=== PATIENT | female | born 1980 | race Caucasian/White ===

== ENCOUNTER → 2018-02-21 15:45 | Outpatient (CLI) | payer BC ==
[2012-11-08 10:42] VITALS: BMI 49.0
[~2018-02-21 15:45] MED LIST: FLEXERIL10 MG PO; KLONOPIN0.5 MG; MOTRIN800 MG PO; NORCO 10/325 TA1 TA1 PO; WELLBUTRIN XL150 M1
== END | disposition home or self-care (01) ==
LOC: D.MRI 15:45
DX: M25.561 Pain in right knee (principal)

== ENCOUNTER 2018-03-18 11:30 | Day surgery (SDC) | payer MEDICAID ==
[2018-03-15 09:42] LABS: HEMATOCRIT 37.1 % (36.0-48.0); HEMOGLOBIN 12.1 g/dL (12-16); MCH 28.7 pg (26.0-34.0); MCHC 32.6 g/dL (31.0-37.0); MCV 87.9 fL (80.0-100.0); MEAN PLATELET VOLUME 10.2 fL (7.4-10.4); RBC 4.22 10x6/uL (4.00-5.40); WBC 7.1 10x3/uL (4.8-10.8)
[~2018-03-18] VITALS: Ht 165.1 cm; Wt 145.1 kg
[~2018-03-18 11:30] MED LIST changes: +ATARAX 25 MG TA25 MG PO
[2018-03-18] MEDS ORDERED: IBUPROFEN200 MG PO (12:03)
[2018-03-18 12:07] VITALS: BP 134/74; Ht 165.1 cm; Wt 145.1 kg
[2018-03-18 14:14] LABS: HCG URINE NEGATIVE (NEGATIVE)
[2018-03-18] MEDS ORDERED: NORCO 10-325 TA1 TAB PO (15:59)
--- NOTE | 2018-03-22 14:28 | OP ---
PATIENT NAME: ANDREY ESTRADA MEDICAL RECORD: [id number] :76 LOCATION:D.OPS ADMISSION DATE: SURGEON: DREW FAYE MD DATE OF OPERATION: 03/18/2018 PREOPERATIVE DIAGNOSIS: Recurrent ACL tear of the right knee. POSTOPERATIVE DIAGNOSIS: Recurrent ACL tear of the right knee. PROCEDURES: 1. Revision ACL reconstruction. 2. Arthroscopic partial medial meniscectomy. Please note that the ACL was done arthroscopically aided as well. SURGEON: Drew Faye MD FIRST ASSISANT: Tom Uribe INTRAOPERATIVE COMPLICATIONS: None. SUMMARY OF PATHOLOGIC FINDINGS: The patient had full-thickness anterior cruciate ligament retear consistent with the preoperative diagnosis and MRI. The patient also had a complex tear of the posterior horn of the medial meniscus. OPERATIVE SUMMARY IN DETAIL: After obtaining the appropriate preoperative orthopedic surgery consent as well as anesthetic consultation, evaluation and clearance, the patient was brought to the operating room and placed on the operating table in supine position. After general laryngeal mask airway was administered, tourniquet was placed on the proximal aspect of the right lower extremity. Right lower extremity was then prepped and draped in routine sterile fashion. The leg was elevated and exsanguinated, tourniquet was inflated to 350 mmHg. Routine inferolateral portal was established, followed by superomedial portal and inferomedial portal. Diagnostic arthroscopy did show the patient to have a recurrent tear of the ACL graft. This was then taken down and the patient had a very tight notch with very minimal osteophytes on the lateral aspect of the medial femoral condyle. Formal notchplasty was thus performed after the anterior cruciate ligament graft was cleared out in its entirety. Having completed this, attention was turned to medial meniscus, where a tear was noted. This was debrided. The patient had a complex tear and a sagittal split with gross tearing of the meniscus. This was debrided back to stable meniscal elements. Having completed this, the Arthrex tibial tunnel guide was utilized. The tibial tunnel was then placed back into the insertion of the ACL. Portions of old ACL remnants were thus removed. Then, using the femoral tunnel placement guide, the spade-tip Beath pin was then placed in the appropriate position and out the lateral femoral cortex and out the skin as well. Low profile 11-mm reamer was then used to create the femoral tunnel again avoiding a previous femoral tunnel that had been placed through the medial portal more out the medial aspect of the medial femoral condyle. This tunnel was placed in a more traditional fashion. The pulling rope was a #2 FiberWire. This was placed through and through the tunnels using the spade-tip Beath pin and then the guide that had been previously prepared was then guided into the tunnel with the assistance of Tom Uribe. The ACL graft was well seated and tightened multiple times. The knee was ranged to many times to seat the graft. Serial and sequential tightening of the TightRope button was then followed by placement of OPERATIVE REPORT [id number] ANDREY ESTRADA a bicortical Arthrex screw and the tibia for distal stabilization. Having completed this, the knee was then ranged again. The Cielo test was negative. Following this, the wounds were irrigated and closed, done by Tom Uribe. Sterile dressings were applied. Tourniquet was deflated, and the patient was then placed in a hinged knee brace set at 0 with further range of motion to be increased later. The patient was awakened and taken to the recovery room in stable condition. All final needle and sponge counts were correct. TRANSINT:[id number] Voice Confirmation ID: [id number] DOCUMENT ID: [id number] YUNIER ALVARADO, DREW LOPEZ at 1428 CC: [id number] DICTATION DATE: 03/22/18 1138 [employer]: 03/22/18 1237 [facility] 03/18/18 [facility] [address] [place] [address]
== END 2018-03-18 18:00 | disposition home or self-care (01) ==
LOC: D.SDCHOLD 11:30 → D.OPS 11:30 → D.SDCHOLD 14:00 → EDSTATUS 17:15 → D.SDCHOLD 17:15 → D.OPS 18:00
PROVIDERS: Anesthesiology; Orthopaedic Surgery
DX: S83.511A Sprain of anterior cruciate ligament of right knee, initial encounter (principal); S83.231A Complex tear of medial meniscus, current injury, right knee, initial encounter; X58.XXXA Exposure to other specified factors, initial encounter; Z01.812 Encounter for preprocedural laboratory examination

== ENCOUNTER → 2018-04-23 12:26 | Outpatient (CLI) | payer BC, MEDICAID ==
[~2018-04-23] VITALS: Ht 165.1 cm; Wt 56.7 kg
[~2018-04-23 12:26] MED LIST changes: +IBUPROFEN200 MG PO; +NORCO 10-325 TA1 TAB PO
[2018-04-23 14:21] VITALS: Ht 165.1 cm; Wt 56.7 kg
== END | disposition home or self-care (01) ==
LOC: D.FANS 12:26
DX: E66.01 Morbid (severe) obesity due to excess calories (principal)

== ENCOUNTER → 2018-07-30 09:21 | Outpatient (CLI) | payer BC ==
[2018-04-23 14:21] VITALS: BMI 20.8
== END | disposition home or self-care (01) ==
LOC: D.OPS 06-25 10:30
PROVIDERS: ATTEND Surgery
DX: E66.01 Morbid (severe) obesity due to excess calories (principal)

== ENCOUNTER 2018-07-31 08:50 | Outpatient (CLI) | payer BC, MEDICAID ==
[~2018-07-31] VITALS: Ht 165.1 cm; Wt 147.0 kg
[2018-07-31 09:12] VITALS: BP 155/99; Ht 165.1 cm; Wt 147.0 kg
== END 2018-07-31 10:33 | disposition home or self-care (01) ==
LOC: D.OPS 08:50
PROVIDERS: ATTEND Surgery
DX: E66.01 Morbid (severe) obesity due to excess calories (principal)

== ENCOUNTER → 2018-08-21 06:06 | Day surgery (SDC) | payer BC, MEDICAID ==
[~2018-08-21] VITALS: Ht 165.1 cm; Wt 144.1 kg
[2018-08-21 06:23] LABS: HEMATOCRIT 38.4 % (36.0-48.0); HEMOGLOBIN 12.6 g/dL (12-16); MCH 28.4 pg (26.0-34.0); MCHC 32.8 g/dL (31.0-37.0); MCV 86.7 fL (80.0-100.0); MEAN PLATELET VOLUME 9.8 fL (7.4-10.4); RBC 4.43 10x6/uL (4.00-5.40); RDW 14.4 % (11.5-14.5); WBC 5.5 10x3/uL (4.8-10.8)
[2018-08-21 07:15] VITALS: BP 144/95; Ht 165.1 cm; Wt 144.1 kg
[2018-08-21 07:24] LABS: HCG URINE NEGATIVE (NEGATIVE)
--- NOTE | 2018-08-21 09:43 | NUR ---
0940-PT. ESCORTED VIA WHEELCHAIR TO PERSONAL CAR, LEFT WITH DRIVING.
== END | disposition home or self-care (01) ==
LOC: D.OPS 06:06
PROVIDERS: Anesthesiology; ATTEND Surgery
DX: K21.9 Gastro-esophageal reflux disease without esophagitis (principal); E66.01 Morbid (severe) obesity due to excess calories; K44.9 Diaphragmatic hernia without obstruction or gangrene; K29.50 Unspecified chronic gastritis without bleeding; K22.10 Ulcer of esophagus without bleeding; Z01.812 Encounter for preprocedural laboratory examination; Z68.43 Body mass index [BMI] 50.0-59.9, adult

== ENCOUNTER 2018-09-12 10:37 | Inpatient (IN) | payer BC ==
[~2018-09-12] VITALS: Ht 165.1 cm; Wt 140.5 kg
[2018-09-27 11:54] LABS: MCH 29.1 pg (26.0-34.0); MCHC 34.2 g/dL (31.0-37.0); MEAN PLATELET VOLUME 10.4 fL (7.4-10.4); RBC 4.47 10x6/uL (4.00-5.40); RDW 14.1 % (11.5-14.5); WBC 6.6 10x3/uL (4.8-10.8)
[2018-09-30 07:35] VITALS: BP 119/74; BMI 51.5
[2018-09-30 07:45] LABS: HCG URINE NEGATIVE (NEGATIVE)
--- NOTE | 2018-09-30 08:00 | NUR ---
LYING IN BED,WITHOUT NEEDS.CALL LIGHT IN REACH
[2018-09-30 13:16] VITALS: BP 136/71
--- NOTE | 2018-09-30 13:35 | NUR ---
RECEIVED PT FROM RECOVERY. ALERT AND ORIENTED. C/O ABD PAIN, CONNECTED EXCHANGE ENGINEER MORPHINE, 1-10-10. EDUCATED PT ON USE OF EXCHANGE ENGINEER. FAMILY AT BEDSIDE. NO S/S OF ACUTE DISTRESS NOTED. PT C/O SHOULDER PAIN. IV TO LEFT HAND, LR INFUSING. SITE PATENT WITHOUT REDNESS OR SWELLING. PT DENIES ANY NEEDS. WILL CONTINUE TO MONITOR.
[2018-09-30 14:19] VITALS: BP 136/71; Ht 165.1 cm; Wt 140.5 kg
[2018-09-30 14:55] LABS: HEMATOCRIT 35.3 % (36.0-48.0); HEMOGLOBIN 11.9 g/dL (12-16)
[2018-09-30 17:33] VITALS: BP 148/85
--- NOTE | 2018-09-30 18:31 | NUR ---
ALERT AND ORIENTED, RESTING IN BED. NO C/O PAIN, DIRECTOR OF MIDWIFERY/STAFF MIDWIFE MANAGING PAIN. NO S/S OF ACUTE DISTRESS NOTED. CALL LIGHT IN REACH. FAMILY AT BEDSIDE. WILL CONTINUE TO MONITOR.
--- NOTE | 2018-09-30 20:00 | NUR ---
ALERT SITTING UP IN BED, STERI STRIPS INTACT TO LAP SITES X 5, SMALL AMOUT OLD BLOODY DRAINAGE NOTED TO RIGHT UPPER SITE, MORPHINE TRUCK CATERER IN USE FOR PAIN CONTROL, REMINDED THAT COULD HAVE ONLY 30ML OF CLEAR LIQUIDS EVERY 30 MIN STATES I UNDERSWTAND MY IS GIVING WATER TO ME EVERY 30 MIN, SEE SHIFT ASSESSMENT, CALL LIGHT IN REACH
[2018-09-30 21:14] LABS: HEMATOCRIT 31.9 % (36.0-48.0); HEMOGLOBIN 10.9 g/dL (12-16)
[2018-09-30 21:44] VITALS: BP 156/93
--- NOTE | 2018-09-30 22:30 | NUR ---
UP AMBULATING IN HALLWAY WITH , TOLERATING WELL
[2018-10-01 01:11] VITALS: BP 124/67
[2018-10-01 02:51] LABS: BASOPHILS 0.1 % (0-2); EOSINOPHILS 0 % (0-7); HEMOGLOBIN 10.3 g/dL (12-16); IMMATURE GRANULOCYTES 0.2 % (0-5); LYMPHOCYTES 12.8 % (15-50); MCH 29.1 pg (26.0-34.0); MCHC 34.3 g/dL (31.0-37.0); MCV 84.7 fL (80.0-100.0); MEAN PLATELET VOLUME 9.6 fL (7.4-10.4); MONOCYTES 4.9 % (2-11); PLATELET COUNT 159 10x3/uL (130-400); RBC 3.54 10x6/uL (4.00-5.40); RDW 14.1 % (11.5-14.5); WBC 9.6 10x3/uL (4.8-10.8)
[2018-10-01 03:12] LABS: ALBUMIN 2.8 g/dL (3.4-5.0); ALKALINE PHOSPHATASE 57 U/L (46-116); ALT (SGPT) 17 U/L (10-68); BILIRUBIN - TOTAL 0.38 mg/dL (0.2-1.3); CALC OSMOLALITY 273 mosm/kg (275-300); CALCIUM 7.8 mg/dL (8.5-10.1); CARBON DIOXIDE 26.9 mmol/L (21.0-32.0); CHLORIDE - SERUM 104 mmol/L (98-107); CREATININE - SERUM 0.6 mg/dL (0.6-1.3); GLUCOSE 130 mg/dL (74-106); POTASSIUM - SERUM 4.6 mmol/L (3.5-5.1); SODIUM 137 mmol/L (136-145); UREA NITROGEN 6 mg/dL (7-18); eGFR NON AFRICAN AMERICAN > 90 mL/min (90-120)
[2018-10-01 06:23] VITALS: BP 123/69
--- NOTE | 2018-10-01 07:25 | NUR ---
ALERT AND ORIENTED. UP AD LEATHA. NO C/O PAIN. MORPHINE COPYING MACHINE MECHANIC MANAGING PAIN AT THIS TIME. NO S/S OF ACUTE DISTRESS NOTED. SCD'S ON. POD #1 LAP GASTRIC SLEEVE, 5 LAP SITES C/D/I WITH STERI-STRIPS. IV TO LEFT HAND, LR INFUSING @ 150ML/HR. SITE PATENT WITHOUT REDNESS OR SWELLING. PT DENIES ANY NEEDS AT THIS TIME. CALL LIGHT IN REACH. WILL CONTINUE TO MONITOR.
[2018-10-01] MEDS ORDERED: ZOFRAN ODT4 MG/UDTAB PO (09:41)
[2018-10-01] MEDS ORDERED: CYCLOBENZAPRINE10 MG PO (09:41)
[2018-10-01] MEDS ORDERED: HYDROCODON-ACE1 EAC7 PO (09:41)
[2018-10-01 12:03] VITALS: BP 130/72
--- NOTE | 2018-10-01 13:00 | NUR ---
PT DISCHARGED HOME WITH SPOUSE VIA WHEELCHAIR ACCOMPANIED BY STAFF. DISCONTINUED IV, CATHETER TIP INTACT. WENT OVER DISCHARGE INSTRUCTIONS WITH PATIENT, PATIENT VERBALIZED UNDERSTANDING. PT DENIES ANY NEEDS.
--- NOTE | 2018-10-01 13:32 | NUR ---
PT IS WITHOUT DISTRESS.WILL DC HOME
--- NOTE | 2018-10-08 06:57 | MORECARE ---
CASE MANAGEMENT DISCHARGE SUMMARY PATIENT: ANDREY ESTRADA UNIT: [id number] ADM DATE: 09/30/18 AGE: 37 : [birth year] SEX: F ROOM/BED: D.[facility]8 AUTHOR: MIK CARLOS PHYSICIAN: REFERRING PHYSICIAN: DREW SCHILLING MD DATE OF SERVICE: 10/08/18 Discharge Plan Patient Name: ANDREY ESTRADA Facility: [facility]:[place] : 1980 Planned Disposition: Anticipated Discharge Date: Discharge Date: 10/01/2018 Expected LOS: 0 Initial Reviewer: [email or web address] Initial Review Date: 10/08/2018 Generated: 10/08/18 7:57 am Patient Name: ANDREY ESTRADA Page [id number] at 0657 All edits/amendments must be made on the electronic document DICTATION DATE: 10/08/1857 GARMENT LINER: YNES 10/08/18 0657 RPT#: [id number] DC DATE:10/01/18 STATUS: DIS IN [facility] [address] [place] [address] END OF REPORT
== END 2018-10-01 13:59 | disposition home or self-care (01) | DRG 621 ==
LOC: D.SDCHOLD 09-30 06:50 → D.MS 09-30 06:50 → D.SDCHOLD 09-30 09:00 → D.MS 09-30 12:38
PROVIDERS: Anesthesiology; ADMIT Surgery; ATTEND Surgery
PROC: 0BQT4ZZ Repair Diaphragm, Percutaneous Endoscopic Approach (ICD-10-PCS; 2018-09-30)
PROC: 0DB64Z3 Excision of Stomach, Percutaneous Endoscopic Approach, Vertical (ICD-10-PCS; principal; 2018-09-30 09:00)
DX: E66.01 Morbid (severe) obesity due to excess calories (principal); Z68.43 Body mass index [BMI] 50.0-59.9, adult; M19.90 Unspecified osteoarthritis, unspecified site; G47.33 Obstructive sleep apnea (adult) (pediatric)

== ENCOUNTER → 2019-08-15 12:44 | Outpatient (CLI) | payer SELFPAY ==
[2018-09-30 14:19] VITALS: BMI 51.5
[~2019-08-15 12:44] MED LIST changes: +CYCLOBENZAPRINE10 MG PO; +HYDROCODON-ACE1 EAC7 PO; +ZOFRAN ODT4 MG/UDTAB PO
[2019-08-15 20:38] LABS: EOS BF 2 %; MACROPHAGES BF 9 %; NEUT - BF 8 %
== END | disposition home or self-care (01) ==
LOC: D.CT 12:44
PROVIDERS: Radiology Diagnostic Radiology; ATTEND Surgery
DX: S80.11XA Contusion of right lower leg, initial encounter (principal); X58.XXXA Exposure to other specified factors, initial encounter

== ENCOUNTER 2019-08-21 10:58 | Outpatient (CLI) | payer SELFPAY ==
[~2019-08-21] VITALS: Ht 165.1 cm; Wt 98.0 kg
[2019-08-21 11:09] LABS: BASOPHILS 0.9 % (0-2); EOSINOPHILS 0.7 % (0-7); HEMATOCRIT 37.9 % (36.0-48.0); HEMOGLOBIN 12.3 g/dL (12-16); IMMATURE GRANULOCYTES 0.2 % (0-5); LYMPHOCYTES 38.5 % (15-50); MCH 30.8 pg (26.0-34.0); MCHC 32.5 g/dL (31.0-37.0); MCV 94.8 fL (80.0-100.0); MEAN PLATELET VOLUME 9.5 fL (7.4-10.4); MONOCYTES 6.6 % (2-11); NEUTROPHILS 53.1 % (40-80); RDW 16.5 % (11.5-14.5); WBC 4.6 10x3/uL (4.8-10.8)
[2019-08-21 11:16] LABS: PLATELET COUNT 191 10x3/uL (130-400)
[2019-08-21 11:17] LABS: CALC OSMOLALITY 276 mosm/kg (275-300); CALCIUM 8.1 mg/dL (8.5-10.1); CARBON DIOXIDE 35.3 mmol/L (21.0-32.0); CHLORIDE - SERUM 101 mmol/L (98-107); CREATININE - SERUM 0.7 mg/dL (0.6-1.3); GLUCOSE 97 mg/dL (74-106); INR 0.98 (0.85-1.17); POTASSIUM - SERUM 3.5 mmol/L (3.5-5.1); PROTIME 12.9 SECONDS (11.6-15.0); SODIUM 140 mmol/L (136-145); UREA NITROGEN 6 mg/dL (7-18); eGFR NON AFRICAN AMERICAN > 90 mL/min (90-120)
[2019-08-21 12:00] VITALS: BP 129/91; Ht 165.1 cm; Wt 98.0 kg
== END 2019-08-21 16:00 ==
LOC: D.SP 10:58 → D.CT 13:00 → D.SP 16:00
PROVIDERS: Specialist; ATTEND Surgery
DX: S70.11XA Contusion of right thigh, initial encounter (principal); X58.XXXA Exposure to other specified factors, initial encounter

== ENCOUNTER 2019-08-26 11:05 | Outpatient (CLI) | payer SELFPAY ==
[~2019-08-26] VITALS: Ht 165.1 cm; Wt 97.7 kg
--- NOTE | ~2019-08-26 | HEMODYNAMI ---
PATIENT:ANDREY ESTRADA MEDICAL RECORD: [id number] : 76 LOCATION:[facility] ADMISSION DATE: 08/26/19 Generatedon:08/26/201913:22 Patient name: ANDREY ESTRADA Patient #: [id number] SSN: DO B: 1980 Date of study: 08/26/2019 Page: Of Hemodynamic Procedure Report Patient Data Patient Demographics Procedure consent was obtained First Name: ANDREY Gender: Female Last Name: NATALIE : 1980 [facility] Initial: PEREZ Age: 38 year(s) Patient #: [id number] Race: Unknown Additional ID: [id number] Contact details Address: [address] [place] [address] [place] State: [place] City: [facility] Zip code: [address] Past Medical History Allergies: No known allergies Admission Admission Data Admission Date: 08/26/2019 Admission Time: 11:05 Height (in.): 65 BSA: 2.04 (m2) Height (cm.): 165.1 BMI: 35.78 (kg/m2) Weight (lbs.): 215 Weight (kg.): 97.52 Procedure Procedure Types Cath Procedure Peripheral Cath Diagnostic Procedure Managing Supervisor Peripheral Procedures Abscess Abscess Drain Injection Procedure Description Procedure Date Procedure Date: 08/26/2019 Procedure Start Time: 13:15 Procedure Staff Name Function Rukhsana Guillen MD Performing Physician Elisha Garay RT Soap Mixer Tee ORTIZ RN Nurse Tae Guajardo RT Scrub Procedure Data Cath Procedure Fluoroscopy Diagnostic fluoroscopy Total fluoroscopy Time: 0.2 time: 0.2 min min Diagnostic fluoroscopy Total fluoroscopy dose: 1 dose: 1 mGy mGy Contrast Material Contrast Material Type Amount (ml) Isovue 300 8 Hemodynamics Rest BSA: 2.04 (m2) O2 Consumption: Estimated: 199.32 (ml/min) O2 Consumption indexed : Estimated:97.71 (ml/min/m) Heart Rate: 59 (bpm) Snapshots Pre Cath Intra NCS Post Cath Vital Signs Time Heart Resp SPO2 etCO2 NIBP (mmHg) Rhythm Pain Sedation Rate (ipm) (%) (mmHg) Status Level (bpm) 13:10:18 58 26 100 0 154/93(131) NSR 0 (11) 10(A) , No pain 13:14:42 65 30 100 0 145/111(128) NSR 0 (11) 10(A) , No pain 13:17:39 60 29 100 0 155/99(123) NSR 0 (11) 10(A) , No pain 13:22:07 71 15 100 0 157/104(120) NSR 0 (11) 10(A) , No pain Procedure Log Time Note 13:00:41 Patient Height : 65 inches 13:00:46 Patient Weight : 215 lbs 13:01:20 Use device set IR Diagnostic 13:01:22 Tegaderm 4 x 4 (1626W) opened to sterile field. 13:01:23 Sterile Angiographic Pack opened to sterile field. 13:01:24 Bag Decanter (2002S) opened to sterile field. 13:01:30 - 13:01:34 Time tracking: Regular hours (M-F 7:00 - 5:00) 13:02:14 Plan of Care:Hemodynamics will remain stable., Cardiac rhythm will remain stable., Comfort level will be maintained., Respiratory function will remain adequate., Patient/ family verbilizes understanding of procedure., Procedure tolerated without complication., Recovers from procedure without complications.. 13:02:21 Patient received from Outpatients to IR Alert and oriented. Tansferred to table in Supine position. 13:02:25 Signed procedure consent form obtained from patient. 13:02:31 H&P Date Dictated: 08/26/2019 Within 30 days and on chart., H&P Addendum completed by physician on day of procedure. (MUST COMPLETE FOR ALL OUTPATIENTS). 13:02:48 - 13:03:06 ----Pre-sedation anethsthesia assessment.---- 13:03:18 Previous problem with sedation/anesthesia? No ? 13:03:21 Snore? Yes 13:03:23 Sleep apnea? No 13:03:26 Deviated septum? No 13:03:29 Opens mouth fully? Yes 13:03:30 Sticks out tongue? Yes 13:03:34 Airway obstruction? No ? 13:03:38 Dentures? No ? 13:03:42 Patient diabetic? No. 13:03:46 - 13:03:49 Pre-procedure instructions explained to patient. 13:03:50 Pre-op teaching completed and patient verbalized understanding. 13:03:52 Family unavailable. 13:03:56 Patient NPO since Midnight. 13:04:05 Patient allergic to No known allergies 13:04:12 Is patient on blood thinner?No 13:04:14 - 13:04:37 - 13:04:45 Fire Safety Assessment: A--An alcohol-based skin anteseptic being used preoperatively., C--Open oxygen or nitrous oxide is being used. 13:05:26 Right thigh area was prepped with chlora-prep and draped in sterile fashion 13:08:56 - 13:09:02 ECG and BP/O2 sat monitors applied to patient. 13:09:03 Vital chart was started 13:09:04 Baseline sample Acquired. 13:09:06 Full Disclosure recording started 13:09:07 - 13:14:05 Physician arrived 13:14:06 --------ALL STOP TIME OUT------ 13:14:06 Final Timeout: patient, procedure, and site verified with staff and physician. All members of the team are in agreement. 13:15:04 Procedure started. 13:19:25 drain was pulled 13:19:48 Procedure ended.(Physican Out) 13:20:37 Fluoroscopy time 00.20 minutes. 13:20:43 Fluoroscopy dose: 1 mGy 13:20:43 Flurop Dose total: 1 13:20:48 Contrast amount:Isovue 300 8ml. 13:20:59 Procedure and supply charges have been captured, reviewed, submitted an d are correct. 13:22:15 Report given to Outpatients. 13:22:37 Vital chart was stopped Device Usage Item Name Manufacture Quantity Catalog Hospital Part Current Minimal Lot# / Number Charge Number Stock Stock Serial# Code Tegaderm 4 x 3M 1 [id number] 4 ([id number]) Sterile Cardinal 1 [id number] 5 Angiographic Health Pack Bag Decanter Microtek 1 [id number] 5 () Slated. Signature Audit [place] Stage Time Signature Unsigned Intra-Procedure 08/26/2019 Elisha Garay 1:22:34 PM RT(R) [facility] [address] [place] [address]
[2019-08-26 11:20] LABS: BASOPHILS 0.5 % (0-2); EOSINOPHILS 0.5 % (0-7); HEMOGLOBIN 11.6 g/dL (12-16); IMMATURE GRANULOCYTES 0.2 % (0-5); LYMPHOCYTES 20.7 % (15-50); MCH 30.8 pg (26.0-34.0); MCHC 32.2 g/dL (31.0-37.0); MCV 95.5 fL (80.0-100.0); MEAN PLATELET VOLUME 9.7 fL (7.4-10.4); MONOCYTES 5.7 % (2-11); NEUTROPHILS 72.4 % (40-80); RBC 3.77 10x6/uL (4.00-5.40); RDW 16.1 % (11.5-14.5); WBC 5.5 10x3/uL (4.8-10.8)
[2019-08-26 11:25] LABS: PLATELET COUNT 138 10x3/uL (130-400)
[2019-08-26 11:32] LABS: APTT 26.8 SECONDS (22.8-39.4); CALC OSMOLALITY 276 mosm/kg (275-300); CALCIUM 8.6 mg/dL (8.5-10.1); CHLORIDE - SERUM 103 mmol/L (98-107); CREATININE - SERUM 0.6 mg/dL (0.6-1.3); GLUCOSE 93 mg/dL (74-106); INR 0.97 (0.85-1.17); POTASSIUM - SERUM 3.8 mmol/L (3.5-5.1); PROTIME 12.8 SECONDS (11.6-15.0); SODIUM 139 mmol/L (136-145); UREA NITROGEN 10 mg/dL (7-18); eGFR NON AFRICAN AMERICAN > 90 mL/min (90-120)
[2019-08-26 12:30] VITALS: Ht 165.1 cm; Wt 97.7 kg
[2019-08-26 12:31] LABS: HCG SERUM NEGATIVE (NEGATIVE)
--- NOTE | 2019-08-26 14:12 | NUR ---
1350 IV DC'D WITH CATH INTACT PT. DRESSING. PT. HAS CALLED HER RIDE AND THEY ARE ON THEIR WAY. TO BE RELEASED IN WC.
== END 2019-08-26 14:00 | disposition home or self-care (01) ==
LOC: D.SP 11:05 → D.RAD 13:00 → D.SP 13:00
PROVIDERS: ATTEND Radiology Vascular & Interventional Radiology
DX: S70.11XA Contusion of right thigh, initial encounter (principal); X58.XXXA Exposure to other specified factors, initial encounter